=== PATIENT | male | born 1995 | race Caucasian/White ===

== ENCOUNTER 2018-04-17 06:45 | Emergency (ER) | payer BC ==
[2018-04-17] MEDS ORDERED: IBUPROFEN 400 MG TAB ONE (07:15)
[2018-04-17] MEDS ORDERED: IBUPROFEN 200 MG TAB PO ONE (07:16)
[2018-04-17] MEDS ORDERED: predniSONE 20 MG TAB ONE ×2 (07:16→07:17)
--- NOTE | 2018-04-17 08:26 | EDPHYS ---
Physician Documentation [facility] Name: Leobardo Doyle Age: 23 yrs Sex: Male : 1995 Arrival Date: 04/17/2018 Time: 06:49 Bed 18 Private MD: ED Physician Mingo Gunter HPI: 04/17 07:18 This 23 yrs old Male presents to ER via Ambulatory with complaints of Left pm1 Foot Pain. 07:18 The patient presents with pain, that is acute. The complaints affect the MIP of left pm1 great toe. Context: The problem was sustained at home, resulted from an unknown cause, the patient can fully bear weight, the patient is able to ambulate, Problem is a result from a previous injury: No. Onset: The symptoms/episode began/occurred last night. Modifying factors: The symptoms are alleviated by Rest. the symptoms are aggravated by weight bearing. Associated signs and symptoms: Pertinent negatives calf tenderness, fever, numbness, swelling, tingling. Treatment prior to arrival includes: no previous treatment. Severity of symptoms: in the emergency department the symptoms are unchanged. The patient has not experienced similar symptoms in the past. The patient has not recently seen a physician. Patient [place] then came home and his left foot started hurting. Denies trauma or injury.. Historical: - Allergies: 07:00 No Known Allergies; ak1 - Home Meds: 07:00 Adderall XR Oral [Active]; Seroquel Oral [Active]; ak1 - PMHx: 07:00 ADD/ADHD; Depression; ak1 - PSHx: 07:00 None; ak1 - Immunization history:: Adult Immunizations unknown. - Social history:: Smoking status: Patient uses tobacco products, smokes one-half pack cigarettes per day. - Ebola Screening: : No symptoms or risks identified at this time. ROS: 07:18 Constitutional: Negative for fever, chills, and weight loss, Eyes: Negative for injury, pm1 pain, redness, and discharge, ENT: Negative for injury, pain, and discharge, Neck: Negative for injury, pain, and swelling, Cardiovascular: Negative for chest pain, palpitations, and edema, Respiratory: Negative for shortness of breath, cough, wheezing, and pleuritic chest pain, Abdomen/GI: Negative for abdominal pain, nausea, vomiting, diarrhea, and constipation, Back: Negative for injury and pain, Skin: Negative for injury, rash, and discoloration. 07:18 Neuro: Negative for headache, weakness, numbness, tingling, and seizure. 07:18 MS/extremity: Positive for pain, of the left foot, Negative for paresthesias, tingling. Exam: 07:18 Constitutional: This is a well developed, well nourished patient who is awake, alert, pm1 and in no acute distress. Head/Face: Normocephalic, atraumatic. Chest/axilla: Normal chest wall appearance and motion. Nontender with no deformity. No lesions are appreciated. Cardiovascular: Regular rate and rhythm with a normal S1 and S2. No gallops, murmurs, or rubs. Normal PMI, no JVD. No pulse deficits. Respiratory: Lungs have equal breath sounds bilaterally, clear to auscultation and percussion. No rales, rhonchi or wheezes noted. No increased work of breathing, no retractions or nasal flaring. Abdomen/GI: Soft, non-tender, with normal bowel sounds. No distension or tympany. No guarding or rebound. No evidence of tenderness throughout. Back: No spinal tenderness. No costovertebral tenderness. Full range of motion. Skin: Warm, dry with normal turgor. Normal color with no rashes, no lesions, and no evidence of cellulitis. 07:18 Musculoskeletal/extremity: Extremities: grossly normal except: noted in the MIP of left first toe: tenderness, There is no evidence of decreased ROM, deformity, erythema, swelling. 07:18 Neuro: Orientation: is normal, Motor: is normal, moves all fours, Sensation: is normal, no obvious gross deficits. Vital Signs: 07:00 BP 164 / 95; Pulse 108; Resp 18; Temp 98(O); Pulse Ox 99% on R/A; Weight 163.29 kg (R); ak1 Height 6 ft. 1 in. (185.42 cm) (R); Pain 9/10; 08:05 BP 178 / 107; Pulse 101; Resp 20; Pulse Ox 100% on R/A; Pain 7/10; em 07:00 Body Mass Index 47.50 (163.29 kg, 185.42 cm) ak1 MDM: 06:58 Patient medically screened. pm1 07:25 Data reviewed: vital signs. Data interpreted: Pulse oximetry: on room air is 99 %. pm1 Interpretation: normal. 08:24 Counseling: I had a detailed discussion with the patient and/or guardian regarding: the pm1 historical points, exam findings, and any diagnostic results supporting the discharge/admit diagnosis, radiology results, the need for outpatient follow up, to return to the emergency department if symptoms worsen or persist or if there are any questions or concerns that arise at home. 04/17 07:00 Order name: Foot Left 3 View XRAY pm1 Administered Medications: 07:11 Drug: predniSONE 60 mg Route: PO; em 08:06 Follow up: Response: No adverse reaction; Pain is decreased em 07:11 Drug: Ibuprofen 600 mg Route: PO; em 08:06 Follow up: Response: No adverse reaction; Pain is decreased em Disposition: 09:52 Co-signature as Attending Physician, Mingo Gunter MD. Disposition: 04/17/18 08:25 Discharged to Home. Impression: Gout - left foot. - Condition is Stable. - Discharge Instructions: Gout. - Prescriptions for Tylenol- Codeine #3 300-30 mg Oral Tablet - take 2 tablets by ORAL route every 6 hours As needed; 20 tablet. Medrol (Brian) 4 mg Oral Tablets, Dose Pack - take 1 tablet by ORAL route as directed - follow package instructions; 1 packet. Naprosyn 500 mg Oral Tablet - take 1 tablet by ORAL route 2 times per day take with food; 30 tablet. - Medication Reconciliation Form, Thank You Letter, Prescription Opioid Use form. - Follow up: Emergency Department; When: As needed; Reason: Worsening of condition. Follow up: Private Physician; When: 2 - 3 days; Reason: Recheck today's complaints, Continuance of care, Re-evaluation by your physician. - Problem is new. - Symptoms have improved. Signatures: Dispatcher [employer] Alek Oliva, COMPUTER SYSTEMS TECHNOLOGY INSTRUCTOR COMPUTER SYSTEMS TECHNOLOGY INSTRUCTOR Aleena Umana RN RN ak1 Kuldip Portillo, CAMERA MACHINIST CAMERA MACHINIST pm1 Mingo Gunter MD MD Corrections: (The following items were deleted from the chart) 08:35 08:25 04/17/2018 08:25 Discharged to Home. Impression: Gout - left foot. Condition is em Stable. Forms are Medication Reconciliation Form, Thank You Letter, Antibiotic Education, Prescription Opioid Use. Follow up: Emergency Department; When: As needed; Reason: Worsening of condition. Follow up: Private Physician; When: 2 - 3 days; Reason: Recheck today's complaints, Continuance of care, Re-evaluation by your physician. Problem is new. Symptoms have improved. pm1
--- NOTE | 2018-04-17 08:26 | ER ---
Nurse's Notes [facility] Name: Leobardo Doyle Age: 23 yrs Sex: Male : 1995 Arrival Date: 04/17/2018 Time: 06:49 Bed 18 Private MD: Diagnosis: Gout-left foot Presentation: 04/17 06:58 Presenting complaint: Patient states: left great toe pain and to of left foot pain ak1 started at 0100. pt denies injury. Transition of care: patient was not received from another setting of care. Onset of symptoms was April 17, 2018. Risk Assessment: Do you want to hurt yourself or someone else? Patient reports no desire to harm self or others. Initial Sepsis Screen: Does the patient meet any 2 criteria? No. Patient's initial sepsis screen is negative. Does the patient have a suspected source of infection? No. Patient's initial sepsis screen is negative. Care prior to arrival: None. 06:58 Method Of Arrival: Ambulatory ak1 06:58 Acuity: JAILENE 4 ak1 Triage Assessment: 07:00 General: Appears in no apparent distress. Behavior is calm, cooperative. Pain: ak1 Complains of pain in dorsum of left foot and left first toe. EENT: No signs and/or symptoms were reported regarding the EENT system. Neuro: No deficits noted. Cardiovascular: No deficits noted. Respiratory: No deficits noted. GI: No signs and/or symptoms were reported involving the gastrointestinal system. : No signs and/or symptoms were reported regarding the genitourinary system. Derm: No signs and/or symptoms reported regarding the dermatologic system. Musculoskeletal: Range of motion: intact in all extremities, pain increased with movement. Historical: - Allergies: 07:00 No Known Allergies; ak1 - Home Meds: 07:00 Adderall XR Oral [Active]; Seroquel Oral [Active]; ak1 - PMHx: 07:00 ADD/ADHD; Depression; ak1 - PSHx: 07:00 None; ak1 - Immunization history:: Adult Immunizations unknown. - Social history:: Smoking status: Patient uses tobacco products, smokes one-half pack cigarettes per day. - Ebola Screening: : No symptoms or risks identified at this time. Screenin:02 Abuse screen: Denies threats or abuse. Denies injuries from another. Nutritional ak1 screening: No deficits noted. Tuberculosis screening: No symptoms or risk factors identified. Fall Risk None identified. Assessment: 07:03 Reassessment: Patient appears in no apparent distress at this time. No changes from ak1 previously documented assessment. see triage assessment. 08:02 Reassessment: Patient appears in no apparent distress at this time. No changes from em previously documented assessment. Patient is alert, oriented x 3, equal unlabored respirations, skin warm/dry/pink. Vital Signs: 07:00 BP 164 / 95; Pulse 108; Resp 18; Temp 98(O); Pulse Ox 99% on R/A; Weight 163.29 kg (R); ak1 Height 6 ft. 1 in. (185.42 cm) (R); Pain 9/10; 08:05 BP 178 / 107; Pulse 101; Resp 20; Pulse Ox 100% on R/A; Pain 7/10; em 07:00 Body Mass Index 47.50 (163.29 kg, 185.42 cm) ak1 ED Course: 06:49 Patient arrived in ED. es 06:51 Kuldip Portillo, HARMEET is PHCP. pm1 06:58 Aleena Burch, RN is Primary Nurse. ak1 06:59 Triage completed. ak1 07:00 Arm band placed on Patient placed in an exam room, on a stretcher, on pulse oximetry, ak1 Patient notified of wait time. 07:02 Patient has correct armband on for positive identification. Bed in low position. Call ak1 light in reach. Side rails up X 1. Pulse ox on. NIBP on. 07:23 Foot Left 3 View XRAY In Process Unspecified. EDMS 07:26 Mingo Gunter MD is Attending Physician. pm1 08:34 No provider procedures requiring assistance completed. Patient did not have IV access em during this emergency room visit. Administered Medications: 07:11 Drug: predniSONE 60 mg Route: PO; em 08:06 Follow up: Response: No adverse reaction; Pain is decreased em 07:11 Drug: Ibuprofen 600 mg Route: PO; em 08:06 Follow up: Response: No adverse reaction; Pain is decreased em Outcome: 08:25 Discharge ordered by . pm1 08:34 Discharged to home ambulatory. em 08:34 Condition: good 08:34 Discharge instructions given to patient, Instructed on discharge instructions, follow up and referral plans. medication usage, Demonstrated understanding of instructions, follow-up care, medications, Prescriptions given X 3. 08:35 Patient left the ED. em Signatures: Dispatcher [employer] Yasmin Oshea Edgar, WALLPAPER INSPECTOR WALLPAPER INSPECTOR Aleena Umana RN RN ak1 Kuldip Portillo, OR DIRECTOR OR DIRECTOR pm1
--- NOTE | 2018-04-17 10:26 | RAD REPORT ---
EXAM DESCRIPTION: RAD - Foot Left 3 View - 04/17/2018 7:23 am CLINICAL HISTORY: PAIN COMPARISON: No comparisons FINDINGS: No fracture or dislocation is seen. Soft tissue swelling is seen involving the great toe.
== END 2018-04-17 08:35 | disposition home or self-care (01) ==
LOC: ER 06:45
DX: M10.9 Gout, unspecified (principal); F90.9 Attention-deficit hyperactivity disorder, unspecified type; F32.9 Major depressive disorder, single episode, unspecified; F17.210 Nicotine dependence, cigarettes, uncomplicated; Z79.899 Other long term (current) drug therapy
CPT/HCPCS: 99284; J7512

== ENCOUNTER 2018-05-12 06:26 | Emergency (ER) | payer BC ==
[2018-05-12] MEDS ORDERED: KETOROLAC 30 MG/ML INJ ONE (07:01)
[2018-05-12] MEDS ORDERED: ONDANSETRON 4 MG (ODT) TAB ONE (07:01)
[2018-05-12] MEDS ORDERED: MEPERIDINE HCL 50 MG/ML AMP ONE (07:01)
--- NOTE | 2018-05-12 07:29 | ER ---
Nurse's Notes [facility] Name: Leobardo Doyle Age: 23 yrs Sex: Male : 1995 Arrival Date: 05/12/2018 Time: 06:28 Bed 14 Private MD: Diagnosis: Low back pain Presentation: 05/12 06:30 Presenting complaint: Patient states: I have chronic back pain and I usually get over jb4 it but this morning is the worst it has been and it just won't go away. 06:30 Transition of care: patient was not received from another setting of care. Onset of jb4 symptoms was May 09, 2018. Risk Assessment: Do you want to hurt yourself or someone else? Patient reports no desire to harm self or others. Initial Sepsis Screen: Does the patient meet any 2 criteria? No. Patient's initial sepsis screen is negative. Does the patient have a suspected source of infection? No. Patient's initial sepsis screen is negative. Care prior to arrival: None. 06:30 Method Of Arrival: Ambulatory jb4 06:30 Acuity: JAILENE 4 jb4 Historical: - Allergies: 06:41 No Known Allergies; jb4 - Home Meds: 06:41 Adderall XR Oral [Active]; Seroquel Oral [Active]; losartan oral oral [Active]; jb4 - PMHx: 06:41 ADD/ADHD; Depression; Insomnia; Hypertension; jb4 - PSHx: 06:41 None; jb4 - Immunization history:: Adult Immunizations up to date, Flu vaccine is not up to date. - Social history:: Smoking status: Patient uses tobacco products, smokes one-half pack cigarettes per day, Patient/guardian denies using alcohol. - Ebola Screening: : No symptoms or risks identified at this time. Screenin:30 Abuse screen: Denies threats or abuse. Nutritional screening: No deficits noted. jb4 Tuberculosis screening: No symptoms or risk factors identified. Fall Risk None identified. Assessment: 06:30 General: Appears in no apparent distress. uncomfortable, Behavior is calm, cooperative, jb4 appropriate for age. Pain: Complains of pain in left low back Pain does not radiate. Pain currently is 10 out of 10 on a pain scale. Quality of pain is described as shooting, throbbing, Pain began 2-3 days ago. Is continuous, Alleviated by rest, repositioning, Aggravated by increased activity, repositioning. Neuro: Level of Consciousness is awake, alert, obeys commands, Oriented to person, place, time, situation. Cardiovascular: No deficits noted. Patient's skin is warm and dry. Respiratory: No deficits noted. Airway is patent Respiratory effort is even, unlabored, Respiratory pattern is regular, symmetrical. GI: No deficits noted. No signs and/or symptoms were reported involving the gastrointestinal system. : No deficits noted. No signs and/or symptoms were reported regarding the genitourinary system. EENT: No deficits noted. No signs and/or symptoms were reported regarding the EENT system. Derm: Skin is intact, Skin is pink, warm \T\ dry. Musculoskeletal: Circulation, motion, and sensation intact. Reports pain in left low back since Wednesday. Pain is 10 out of 10 on a pain scale. 07:26 Reassessment: Patient appears in no apparent distress at this time. ERP at bedside jl7 discussing plan of care Patient states symptoms have improved. Vital Signs: 06:30 BP 150 / 100; Pulse 95; Resp 18; Temp 98.1(O); Pulse Ox 98% on R/A; Weight 163.29 kg jb4 (R); Height 6 ft. 1 in. (185.42 cm) (R); Pain 10/10; 07:26 BP 156 / 109; Pulse 90; Resp 16; Pulse Ox 98% ; Pain 7/10; jl7 06:30 Body Mass Index 47.50 (163.29 kg, 185.42 cm) jb4 ED Course: 06:28 Patient arrived in ED. ds1 06:30 Bjorn Pozo, JUDY is Primary Nurse. jb4 06:30 Arm band placed on right wrist. jb4 06:30 Patient has correct armband on for positive identification. Bed in low position. Call jb4 light in reach. Side rails up X 1. Pulse ox on. NIBP on. 06:37 Ozzy Leonardo PA is PHCP. jr8 06:37 Rod Gabriel MD is Attending Physician. jr8 06:39 Triage completed. jb4 07:26 No provider procedures requiring assistance completed. Patient did not have IV access jl7 during this emergency room visit. Administered Medications: 07:01 Drug: Demerol 50 mg Route: IM; Site: right gluteus; jb4 07:27 Follow up: Response: No adverse reaction; Pain is decreased jl7 07:01 Drug: Zofran 4 mg Route: PO; jb4 07:27 Follow up: Response: No adverse reaction jl7 07:01 Drug: TORadol 60 mg Route: IM; Site: right gluteus; jb4 07:26 Follow up: Response: No adverse reaction; Pain is decreased jl7 Outcome: 07:29 Discharge ordered by . jrLeslie 07:38 Discharged to home ambulatory. jl7 07:38 Condition: stable 07:38 Discharge instructions given to patient, Instructed on discharge instructions, follow up and referral plans. medication usage, Demonstrated understanding of instructions, follow-up care, medications, Prescriptions given X 4. 07:39 Patient left the ED. jl7 Signatures: Serenity Weeks ds1 Ozzy Leonardo PA PA jr8 Bjorn Pozo RN RN jb4 Moe Carbone RN RN jl7
--- NOTE | 2018-05-12 07:29 | EDPHYS ---
Physician Documentation [facility] Name: Leobardo Doyle Age: 23 yrs Sex: Male : 1995 Arrival Date: 05/12/2018 Time: 06:28 Bed 14 Private MD: ED Physician Rod Gabriel HPI: 05/12 07:27 This 23 yrs old Male presents to ER via Ambulatory with complaints of Back jr8 Pain. 07:27 The patient presents with pain that is chronic. The symptoms are located in the low jr8 back. Onset: The symptoms/episode began/occurred chronic pain but acutely worse over the past two days. The pain does not radiate. Associated signs and symptoms: The patient has no apparent associated signs or symptoms. Modifying factors: The patient symptoms are alleviated by nothing, the patient symptoms are aggravated by any movement, bending. Severity of symptoms: At their worst the symptoms were moderate, in the emergency department the symptoms are unchanged. The patient has experienced similar episodes in the past, a few times. The patient has not recently seen a physician. Denies recent fall or trauma. Stated that his back has flares up occasionally. Denies bowel or bladder dysfunction. Denies saddle anesthesia or lower extremity weakness . Historical: - Allergies: 06:41 No Known Allergies; jb4 - Home Meds: 06:41 Adderall XR Oral [Active]; Seroquel Oral [Active]; losartan oral oral [Active]; jb4 - PMHx: 06:41 ADD/ADHD; Depression; Insomnia; Hypertension; jb4 - PSHx: 06:41 None; jb4 - Immunization history:: Adult Immunizations up to date, Flu vaccine is not up to date. - Social history:: Smoking status: Patient uses tobacco products, smokes one-half pack cigarettes per day, Patient/guardian denies using alcohol. - Ebola Screening: : No symptoms or risks identified at this time. ROS: 07:27 Eyes: Negative for injury, pain, redness, and discharge, ENT: Negative for injury, jr8 pain, and discharge, Neck: Negative for injury, pain, and swelling, Cardiovascular: Negative for chest pain, palpitations, and edema, Respiratory: Negative for shortness of breath, cough, wheezing, and pleuritic chest pain, Abdomen/GI: Negative for abdominal pain, nausea, vomiting, diarrhea, and constipation, MS/Extremity: Negative for injury and deformity, Skin: Negative for injury, rash, and discoloration, Neuro: Negative for headache, weakness, numbness, tingling, and seizure. 07:27 Back: Positive for pain at rest, pain with movement, of the low back area. Exam: 07:27 Eyes: Pupils equal round and reactive to light, extra-ocular motions intact. Lids and jr8 lashes normal. Conjunctiva and sclera are non-icteric and not injected. Cornea within normal limits. Periorbital areas with no swelling, redness, or edema. ENT: Nares patent. No nasal discharge, no septal abnormalities noted. Tympanic membranes are normal and external auditory canals are clear. Oropharynx with no redness, swelling, or masses, exudates, or evidence of obstruction, uvula midline. Mucous membranes moist. Neck: Trachea midline, no thyromegaly or masses palpated, and no cervical lymphadenopathy. Supple, full range of motion without nuchal rigidity, or vertebral point tenderness. No Meningismus. Cardiovascular: Regular rate and rhythm with a normal S1 and S2. No gallops, murmurs, or rubs. Normal PMI, no JVD. No pulse deficits. Respiratory: Lungs have equal breath sounds bilaterally, clear to auscultation and percussion. No rales, rhonchi or wheezes noted. No increased work of breathing, no retractions or nasal flaring. Abdomen/GI: Soft, non-tender, with normal bowel sounds. No distension or tympany. No guarding or rebound. No evidence of tenderness throughout. Skin: Warm, dry with normal turgor. Normal color with no rashes, no lesions, and no evidence of cellulitis. MS/ Extremity: Pulses equal, no cyanosis. Neurovascular intact. Full, normal range of motion. Neuro: Awake and alert, GCS 15, oriented to person, place, time, and situation. Cranial nerves II-XII grossly intact. Motor strength 5/5 in all extremities. Sensory grossly intact. Cerebellar exam normal. Normal gait. 07:27 Back: pain, that is moderate, of the lumbar area, left low back, left mid back, right mid back and right low back, ROM is painful, normal spinal alignment noted, muscle spasm, is appreciated in the left low back, left mid back, right mid back and right low back. Vital Signs: 06:30 BP 150 / 100; Pulse 95; Resp 18; Temp 98.1(O); Pulse Ox 98% on R/A; Weight 163.29 kg jb4 (R); Height 6 ft. 1 in. (185.42 cm) (R); Pain 10/10; 07:26 BP 156 / 109; Pulse 90; Resp 16; Pulse Ox 98% ; Pain 7/10; jl7 06:30 Body Mass Index 47.50 (163.29 kg, 185.42 cm) 4 MDM: 06:37 Patient medically screened. 8 07:27 Data reviewed: vital signs, nurses notes, and as a result, I will discharge patient. jr8 Data interpreted: Pulse oximetry: on room air is 98 %. Interpretation: normal. Counseling: I had a detailed discussion with the patient and/or guardian regarding: the historical points, exam findings, and any diagnostic results supporting the discharge/admit diagnosis, the need for outpatient follow up, a family practitioner, to return to the emergency department if symptoms worsen or persist or if there are any questions or concerns that arise at home. Response to treatment: the patient's symptoms have markedly improved after treatment. Administered Medications: 07:01 Drug: Demerol 50 mg Route: IM; Site: right gluteus; jb4 07:27 Follow up: Response: No adverse reaction; Pain is decreased jl7 07:01 Drug: Zofran 4 mg Route: PO; jb4 07:27 Follow up: Response: No adverse reaction jl7 07:01 Drug: TORadol 60 mg Route: IM; Site: right gluteus; jb4 07:26 Follow up: Response: No adverse reaction; Pain is decreased jl7 Disposition: 05/13 04:24 Co-signature as Attending Physician, Rod Gabriel MD I agree with the assessment and 4 plan of care. Disposition: 05/12/18 07:29 Discharged to Home. Impression: Low back pain. - Condition is Stable. - Discharge Instructions: Back Pain, Adult, Musculoskeletal Pain, Back Exercises, [id number], Heat Therapy. - Prescriptions for Ibuprofen 800 mg Oral Tablet - take 1 tablet by ORAL route every 12 hours As needed take with food; 20 tablet. Skelaxin 800 mg Oral Tablet - take 1 tablet by ORAL route every 6 hours As needed; 40 tablet. Tylenol- Codeine #3 300-30 mg Oral Tablet - take 2 tablets by ORAL route every 6 hours As needed; 20 tablet. Medrol (Brian) 4 mg Oral Tablets, Dose Pack - take 1 tablet by ORAL route as directed - follow package instructions; 1 packet. - Medication Reconciliation Form, Thank You Letter, Antibiotic Education, Prescription Opioid Use, Work release form form. - Follow up: Private Physician; When: 2 - 3 days; Reason: Recheck today's complaints, Continuance of care, Re-evaluation by your physician. - Problem is new. - Symptoms have improved. Signatures: Ozzy Leonardo PA PA jr8 Bjorn Pozo, RN RN jb4 Moe Carbone RN RN jl7 Rod Gabriel MD MD tw4 Corrections: (The following items were deleted from the chart) 05/12 07:31 07:27 Denies recent fall or trauma. Stated that his back has flares up occasionally . jr8 jr8 07:39 07:29 05/12/2018 07:29 Discharged to Home. Impression: Low back pain. Condition is jl7 Stable. Forms are Medication Reconciliation Form, Thank You Letter, Antibiotic Education, Prescription Opioid Use. Follow up: Private Physician; When: 2 - 3 days; Reason: Recheck today's complaints, Continuance of care, Re-evaluation by your physician. Problem is new. Symptoms have improved. jr8
== END 2018-05-12 07:39 | disposition home or self-care (01) ==
LOC: ER 06:26
DX: M54.5 Low back pain (principal); I10 Essential (primary) hypertension; F32.9 Major depressive disorder, single episode, unspecified; F90.9 Attention-deficit hyperactivity disorder, unspecified type; F17.210 Nicotine dependence, cigarettes, uncomplicated
CPT/HCPCS: 99283; J2175